=== PATIENT | male | born 1965 | race Caucasian/White ===

== ENCOUNTER 2018-03-09 13:49 | Observation (INO) | payer MEDICAID, OTHER ==
[2018-03-09] VITALS (10 sets, daily range): BP systolic 140–186; BP diastolic 76–105; PULSE 70–107; RESP 17–18; TEMP 98.6; O2SAT 96–100
[~2018-03-09] VITALS: Ht 180.3 cm; Wt 63.0 kg
[2018-03-09] MEDS ORDERED: SODIUM CHLORIDE 0.9% FLUSH 10 ML FLUSH IVF PRN (14:00)
[2018-03-09] MEDS ORDERED: ASPIRIN 81 MG CHEW TAB PO ONE (14:00)
--- NOTE | 2018-03-09 14:05 | PD ---
HPI Chief Complaint: Chest Pain Time Seen by Provider: 13:58 Travel History International Travel<30 days: No Contact w/Intl Traveler<30days: No Traveled to known affect area: No History of Present Illness HPI This is a 53-year-old male with history of coronary artery disease, CABG, stent placement in 2017, history of hypertension and tobacco use who presents by private vehicle for evaluation of chest pain. Symptoms started 1 hour prior to arrival when he was yelling at his grandchildren. Pain is a sharp left-sided chest pain that seems to radiate throughout his body. He reports that he has similar pain about once every month. Typically he takes nitroglycerin and that helps but he forgot it today. He endorses nausea, dyspnea. Denies vomiting, abdominal pain, cough or congestion, dizziness, lightheadedness, weakness. He reports that he was seen at [facility] in [place] last week for evaluation of chest pain. He is uncertain specifically what has stated. He reports that he is from [place], has been visiting family in [place] for the past 1.5 months. He has no local doctor. No other complaints. [facility] Past Medical History Coronary Artery Disease: Yes Hypertension: Yes Social History Tobacco Use: Yes Allergies-Medications (Allergen,Severity, Reaction): Coded Allergies: No Known Allergies (Unverified , 03/09/18) Review of Systems Except as stated in HPI: all other systems reviewed are Neg Physical Exam Narrative GENERAL: Well-developed well-nourished male in no acute distress. SKIN: Warm and dry. HEAD: Atraumatic. Normocephalic. EYES: Pupils equal and round. No scleral icterus. No injection or drainage. ENT: No nasal bleeding or discharge. Mucous membranes pink and moist. NECK: Trachea midline. No JVD. CARDIOVASCULAR: Regular rate and rhythm. No murmur appreciated. RESPIRATORY: No accessory muscle use. Clear to auscultation. Breath sounds equal bilaterally. GASTROINTESTINAL: Abdomen soft, non-tender, nondistended. Hepatic and splenic margins not palpable. MUSCULOSKELETAL: No obvious deformities. No clubbing. No cyanosis. No edema. NEUROLOGICAL: Awake and alert. No obvious cranial nerve deficits. Motor grossly within normal limits. Normal speech. PSYCHIATRIC: Appropriate mood and affect; insight and judgment normal. Data Data Last Documented VS Vital Signs Date Time Temp Pulse Resp B/P (MAP) Pulse Ox O2 Delivery O2 Flow Rate FiO2 5/22/18 14:21 106 18 140/80 (100) 03/09/18 14:16 100 Nasal Cannula 2.00 03/09/18 13:53 98.6 Orders Orders Electrocardiogram (03/09/18 13:59) Basic Metabolic Panel (Bmp) (03/09/18 13:59) Ckmb (Isoenzyme) Profile (03/09/18 13:59) Complete Blood Count With Diff (03/09/18 13:59) Magnesium (Mg) (03/09/18 13:59) Prothrombin Time / Inr (Pt) (03/09/18 13:59) Act Partial Throm Time (Ptt) (03/09/18 13:59) Troponin I (03/09/18 13:59) Ecg Monitoring (03/09/18 13:59) Bilateral Bp Monitoring (03/09/18 13:59) Iv Access Insert/Monitor (03/09/18 13:59) Oximetry (03/09/18 13:59) Oxygen Administration (03/09/18 13:59) Aspirin Chew (Aspirin Chew) (03/09/18 14:00) Sodium Chloride 0.9% Flush (Ns Flush) (03/09/18 14:00) Nitroglycerin Sl (Nitrostat Sl) (03/09/18 14:00) Chest, Pa & Lat (03/09/18 13:59) Morphine Inj (Morphine Inj) (03/09/18 14:45) Morphine Inj (Morphine Inj) (03/09/18 15:45) Nitroglycerin 2% Oint (Nitroglycerin 2% (03/09/18 15:45) Ondansetron Odt (Zofran Odt) (03/09/18 15:45) Admit Order (Ed Use Only) (03/09/18 15:38) Labs Laboratory Tests Test 03/09/18 14:10 White Blood Count 7.2 TH/MM3 Red Blood Count 4.78 MIL/MM3 Hemoglobin 17.0 GM/DL Hematocrit 47.7 % Mean Corpuscular Volume 99.9 FL Mean Corpuscular Hemoglobin 35.6 PG Mean Corpuscular Hemoglobin Concent 35.6 % Red Cell Distribution Width 14.6 % Platelet Count 313 TH/MM3 Mean Platelet Volume 7.4 FL Neutrophils (%) (Auto) 66.0 % Lymphocytes (%) (Auto) 23.1 % Monocytes (%) (Auto) 7.7 % Eosinophils (%) (Auto) 1.6 % Basophils (%) (Auto) 1.6 % Neutrophils # (Auto) 4.8 TH/MM3 Lymphocytes # (Auto) 1.7 TH/MM3 Monocytes # (Auto) 0.6 TH/MM3 Eosinophils # (Auto) 0.1 TH/MM3 Basophils # (Auto) 0.1 TH/MM3 CBC Comment DIFF FINAL Differential Comment Prothrombin Time 9.4 SEC Prothromb Time International Ratio 0.9 RATIO Activated Partial Thromboplast Time 21.2 SEC Blood Urea Nitrogen 14 MG/DL Creatinine 1.04 MG/DL Random Glucose 112 MG/DL Calcium Level 9.3 MG/DL Magnesium Level 2.2 MG/DL Sodium Level 139 MEQ/L Potassium Level 3.7 MEQ/L Chloride Level 103 MEQ/L Carbon Dioxide Level 25.7 MEQ/L Anion Gap 10 MEQ/L Estimat Glomerular Filtration Rate 75 ML/MIN Total Creatine Kinase 52 U/L Troponin I LESS THAN 0.02 NG/ML MDM Medical Decision Making Medical Screen Exam Complete: Yes Emergency Medical Condition: Yes Medical Record Reviewed: Yes Differential Diagnosis Acute coronary syndrome, angina, aortic dissection, pneumothorax, pulmonary embolism, hemothorax, pericarditis, myocarditis, costochondritis Narrative Course Patient was placed on ECG monitoring and pulse oximetry. A 12 EKG was obtained revealing sinus rhythm with right bundle branch block, T-wave inversions noted in V1 and V2, lab work, chest x-ray have been ordered. We will attempt to obtain records from [facility] visit last week. The request has been faxed. Initial lab work imaging studies are reassuring. The patient continues to have chest pain, additional dose of morphine, nitro paste has been ordered. The patient will be admitted to the chest pain center for serial cardiac enzymes and rule out purposes. He is agreeable. Diagnosis Primary Impression: Chest pain Admitting Information Admitting Physician Requests: Nile Cuevas March 09, 2018 14:05
--- NOTE | 2018-03-09 14:08 | PD ---
Physical Exam Date Seen by Provider: March 09, 2018 Data Data Last Documented VS Vital Signs Date Time Temp Pulse Resp B/P (MAP) Pulse Ox O2 Delivery O2 Flow Rate FiO2 03/09/18 14:21 106 18 140/80 (100) 03/09/18 14:16 100 Nasal Cannula 2.00 03/09/18 13:53 98.6 Orders Orders Electrocardiogram (03/09/18 13:59) Basic Metabolic Panel (Bmp) (03/09/18 13:59) Ckmb (Isoenzyme) Profile (03/09/18 13:59) Complete Blood Count With Diff (03/09/18 13:59) Magnesium (Mg) (03/09/18 13:59) Prothrombin Time / Inr (Pt) (03/09/18 13:59) Act Partial Throm Time (Ptt) (03/09/18 13:59) Troponin I (03/09/18 13:59) Ecg Monitoring (03/09/18 13:59) Bilateral Bp Monitoring (03/09/18 13:59) Iv Access Insert/Monitor (03/09/18 13:59) Oximetry (03/09/18 13:59) Oxygen Administration (03/09/18 13:59) Aspirin Chew (Aspirin Chew) (03/09/18 14:00) Sodium Chloride 0.9% Flush (Ns Flush) (03/09/18 14:00) Nitroglycerin Sl (Nitrostat Sl) (03/09/18 14:00) Chest, Pa & Lat (03/09/18 13:59) Morphine Inj (Morphine Inj) (03/09/18 14:45) Morphine Inj (Morphine Inj) (03/09/18 15:45) Nitroglycerin 2% Oint (Nitroglycerin 2% (03/09/18 15:45) Ondansetron Odt (Zofran Odt) (03/09/18 15:45) Admit Order (Ed Use Only) (03/09/18 15:38) Labs Laboratory Tests Test 03/09/18 14:10 White Blood Count 7.2 TH/MM3 Red Blood Count 4.78 MIL/MM3 Hemoglobin 17.0 GM/DL Hematocrit 47.7 % Mean Corpuscular Volume 99.9 FL Mean Corpuscular Hemoglobin 35.6 PG Mean Corpuscular Hemoglobin Concent 35.6 % Red Cell Distribution Width 14.6 % Platelet Count 313 TH/MM3 Mean Platelet Volume 7.4 FL Neutrophils (%) (Auto) 66.0 % Lymphocytes (%) (Auto) 23.1 % Monocytes (%) (Auto) 7.7 % Eosinophils (%) (Auto) 1.6 % Basophils (%) (Auto) 1.6 % Neutrophils # (Auto) 4.8 TH/MM3 Lymphocytes # (Auto) 1.7 TH/MM3 Monocytes # (Auto) 0.6 TH/MM3 Eosinophils # (Auto) 0.1 TH/MM3 Basophils # (Auto) 0.1 TH/MM3 CBC Comment DIFF FINAL Differential Comment Prothrombin Time 9.4 SEC Prothromb Time International Ratio 0.9 RATIO Activated Partial Thromboplast Time 21.2 SEC Blood Urea Nitrogen 14 MG/DL Creatinine 1.04 MG/DL Random Glucose 112 MG/DL Calcium Level 9.3 MG/DL Magnesium Level 2.2 MG/DL Sodium Level 139 MEQ/L Potassium Level 3.7 MEQ/L Chloride Level 103 MEQ/L Carbon Dioxide Level 25.7 MEQ/L Anion Gap 10 MEQ/L Estimat Glomerular Filtration Rate 75 ML/MIN Total Creatine Kinase 52 U/L Troponin I LESS THAN 0.02 NG/ML MDM Medical Record Reviewed: Yes Supervised Visit with CAMRON: Yes Interpretation(s) Vital Signs Date Time Temp Pulse Resp B/P (MAP) Pulse Ox O2 Delivery O2 Flow Rate FiO2 03/09/18 13:53 98.6 70 18 177/103 [phone]) 31 Narrative Course I, Dr. Longoria, have reviewed the advance practice practitioner's documentation ( Nile Pierson) and am in agreement, met with the patient face to face, made the diagnosis, and the medical decision making was done by me. *My assessment and Findings: Chest pain - patient is a 53-year-old male who presents the emergency room complaints of chest pain. Patient reports that just prior to coming to the ER, he began feeling as if a horse kicked him in the chest. Reports SOB and diaphoresis with his chest pain. Patient does have history of coronary disease , history of bypass surgery with multiple cardiac stents, reports that he was seen at [facility] last week for similar symptoms and was discharged home from there after an inpatient visit. Cardiac workup initiated for patient. Attempt was made to obtain records from [facility]. Ultimately, patient require admission for observation to the hospital in the chest pain unit. Laboratory Tests Test 03/09/18 14:10 White Blood Count 7.2 TH/MM3 (4.0-11.0) Red Blood Count 4.78 MIL/MM3 (4.50-5.90) Hemoglobin 17.0 GM/DL (13.0-17.0) Hematocrit 47.7 % (39.0-51.0) Mean Corpuscular Volume 99.9 FL (80.0-100.0) Mean Corpuscular Hemoglobin 35.6 PG (27.0-34.0) Mean Corpuscular Hemoglobin Concent 35.6 % (32.0-36.0) Red Cell Distribution Width 14.6 % (11.6-17.2) Platelet Count 313 TH/MM3 (150-450) Mean Platelet Volume 7.4 FL (7.0-11.0) Neutrophils (%) (Auto) 66.0 % (16.0-70.0) Lymphocytes (%) (Auto) 23.1 % (9.0-44.0) Monocytes (%) (Auto) 7.7 % (0.0-8.0) Eosinophils (%) (Auto) 1.6 % (0.0-4.0) Basophils (%) (Auto) 1.6 % (0.0-2.0) Neutrophils # (Auto) 4.8 TH/MM3 (1.8-7.7) Lymphocytes # (Auto) 1.7 TH/MM3 (1.0-4.8) Monocytes # (Auto) 0.6 TH/MM3 (0-0.9) Eosinophils # (Auto) 0.1 TH/MM3 (0-0.4) Basophils # (Auto) 0.1 TH/MM3 (0-0.2) CBC Comment DIFF FINAL Differential Comment Prothrombin Time 9.4 SEC (9.8-11.6) Prothromb Time International Ratio 0.9 RATIO Activated Partial Thromboplast Time 21.2 SEC (24.3-30.1) Blood Urea Nitrogen 14 MG/DL (7-18) Creatinine 1.04 MG/DL (0.60-1.30) Random Glucose 112 MG/DL (74-106) Calcium Level 9.3 MG/DL (8.5-10.1) Magnesium Level 2.2 MG/DL (1.5-2.5) Sodium Level 139 MEQ/L (136-145) Potassium Level 3.7 MEQ/L (3.5-5.1) Chloride Level 103 MEQ/L (98-107) Carbon Dioxide Level 25.7 MEQ/L (21.0-32.0) Anion Gap 10 MEQ/L (5-15) Estimat Glomerular Filtration Rate 75 ML/MIN (>89) Total Creatine Kinase 52 U/L (39-308) Troponin I LESS THAN 0.02 NG/ML 1st set of trop neg, will obs to chest pain unit, records from [facility] are pending Diagnosis Primary Impression: Chest pain Admitting Information Admitting Physician Requests: Observation Melania Longoria DO March 09, 2018 14:08
[2018-03-09] MEDS: NITROGLYCERIN 0.4 MG SL 25 TABS/BTL SL SCH ×3 (14:10→14:20)
[2018-03-09 14:27] LABS: AUTOMATED NEUTROPHIL # 4.8 TH/MM3 (1.8-7.7); BASOPHIL # 0.1 TH/MM3 (0-0.2); BASOPHIL % 1.6 % (0.0-2.0); EOSINOPHIL # 0.1 TH/MM3 (0-0.4); EOSINOPHIL % 1.6 % (0.0-4.0); HEMATOCRIT 47.7 % (39.0-51.0); LYMPH % 23.1 % (9.0-44.0); LYMPHOCYTE # 1.7 TH/MM3 (1.0-4.8); MEAN CELL VOLUME 99.9 FL (80.0-100.0); MEAN CORPUSCULAR HEMOGLOBIN 35.6 PG (27.0-34.0); MEAN CORPUSCULAR HGB CONC 35.6 % (32.0-36.0); MEAN PLATELET VOLUME 7.4 FL (7.0-11.0); MONO % 7.7 % (0.0-8.0); MONOCYTE # 0.6 TH/MM3 (0-0.9); PLATELET COUNT 313 TH/MM3 (150-450); RED BLOOD COUNT 4.78 MIL/MM3 (4.50-5.90); RED CELL DISTRIBUTION WIDTH 14.6 % (11.6-17.2); WHITE BLOOD COUNT 7.2 TH/MM3 (4.0-11.0)
[2018-03-09 14:35] LABS: INTERNATIONAL NORMALIZED RATIO 0.9 RATIO; PROTHROMBIN TIME - PATIENT 9.4 SEC (9.8-11.6)
[2018-03-09] MEDS ORDERED: MORPHINE SULFATE 4 MG/ML INJ IV PUSH ONE ×2 (14:45→15:45)
[2018-03-09 15:06] LABS: BICARBONATE 25.7 MEQ/L (21.0-32.0); BLOOD UREA NITROGEN 14 MG/DL (7-18); CALCIUM 9.3 MG/DL (8.5-10.1); CHLORIDE 103 MEQ/L (98-107); CREATININE 1.04 MG/DL (0.60-1.30); GLOMERULAR FILTRATION RATE 75 ML/MIN (>89); GLUCOSE,RANDOM 112 MG/DL (74-106); MAGNESIUM 2.2 MG/DL (1.5-2.5); SODIUM (NA) 139 MEQ/L (136-145)
[2018-03-09 15:08] LABS: TROPONIN I LESS THAN 0.02 NG/ML (0.02-0.05)
--- NOTE | 2018-03-09 15:21 | RADRPT ---
EXAM DATE: 03/09/2018 3:16 PM EDT AGE/SEX: 53 years / Male INDICATIONS: Severe chest pain since early today, patient twisted his body and feels like his ribs a re split open CLINICAL DATA: This is the patient's initial encounter. Patient reports that signs and symptoms have been present for 1 day and indicates a pain score of 10/10. MEDICAL/SURGICAL HISTORY: Cardiovascular disease. Congestive heart failure. CABG. COMPARISON: No prior [facility] exams available for comparison. FINDINGS: PA and lateral views of the chest demonstrate the lungs to be symmetrically aerated withou t evidence of mass, infiltrate or effusion. The cardiomediastinal contours are unremarkable. There is evidence of previous cardiothoracic surgery. Osseous structures are intact. There is some coils over lying the left clavicle area. CONCLUSION: No acute intrathoracic disease. Electronically signed by: Leonel Adrian MD 03/09/2018 3:19 PM EDT
[2018-03-09] MEDS ORDERED: IOHEXOL 350 MG/ML 100 ML BTL (for Cath Lab) OTHER ONE (15:41)
[2018-03-09] MEDS ORDERED: NITROGLYCERIN 2% OINT 1 GM PACKET TOP ONE (15:45)
[2018-03-09] MEDS ORDERED: ONDANSETRON ODT 4 MG TAB PO ONE (15:45)
--- NOTE | 2018-03-09 16:41 | HHI.HP ---
HPI Primary Care Physician Unknown Chief Complaint Chest pain History of Present Illness This is a 53-year-old male with history of CAD with a three-vessel bypass May 2017 in [place] as well as having 5 stents since then presents to ED with a complaint of chest discomfort that began this morning. Patient states that he twisted quickly to be on his grandson and when doing so he felt as if something in his chest not. He points to the sternum indicate the location of this. It was a sharp pain. It lasted an hour. States that just recently came back. States is tender to touch. He was not short of breath, nauseous, or diaphoretic. He states it is not the same type of discomfort that he would have when needing stents or the bypass. States that he was having a pressure discomfort with those episodes. States he was recently admitted to [facility] last week and was discharged. States he had CAT scan but states he had no stress test or heart catheterization. States his last stent was 2 months ago. Does not know which vessel. States that his last stress test was 3 months ago in [place] and at which time he needed a stent. States he is in town visiting family and does not know when he will be back in [place]. He has no local doctor. States he takes the medications as directed but does not know any of them. Patient continues to smoke cigarettes. Review of Systems General: Patient denies fevers, chills, and recent travel. HEENT: Patient denies headache, sore throat, difficulty swallowing. Cardiovascular: Has the chest discomfort as mentioned above. Denies sensation of heart beating rapidly or irregularly. No syncope. Denies diaphoresis. Respiratory: Denies shortness of breath or inspirational chest discomfort. Denies coughing wheezing or hemoptysis. GI: Patient denies nausea, vomiting, diarrhea, abdominal pain, bloody stools. Musculoskeletal: Patient denies joint pain or edema. Denies calf pain or edema. Neurovascular: Patient denies numbness, tingling, weakness in extremities. Denies headache. Endocrine: Denies polyuria and polydipsia. Hematologic: Denies easy bruising. Skin: Denies rash or itching. Past Family Social History Allergies: Coded Allergies: No Known Allergies (Unverified , 03/09/18) Past Medical History CAD with CABG and 5 stents since his bypass. Hypertension, hyperlipidemia, tobacco abuse. Denies diabetes. Past Surgical History He has had CABG. He has had multiple heart catheterizations. States he has had 5 stents. Reported Medications Reported Meds & Active Scripts Active Active Prescriptions or Reported Medications Unobtainable Active Ordered Medications Current Medications Medications (Trade) Dose Ordered Sig/Brennan Route Start Time Stop Time Status Last Admin (NS Flush) 2 ml UNSCH PRN IVF 03/09/18 14:00 Family History There is family history of CAD. Social History Patient continues to smoke about 1 pack of cigarettes daily and has done so for more than 30 years. Denies alcohol or illicit drug use. Physical Exam Vital Signs Vital Signs Date Time Temp Pulse Resp B/P (MAP) Pulse Ox O2 Delivery O2 Flow Rate FiO2 03/09/18 15:56 97 17 178/105 (129) 100 Room Air 03/09/18 14:21 106 18 140/80 (100) 03/09/18 14:16 107 18 181/95 (123) 100 Nasal Cannula 2.00 03/09/18 14:11 98 171/103 (125) 03/09/18 14:06 100 Nasal Cannula 2.00 03/09/18 14:06 100 Nasal Cannula 2.00 03/09/18 14:06 83 100 Nasal Cannula 2.00 03/09/18 13:53 98.6 70 18 177/103 (127) 96 Physical Exam GENERAL: This is a well-nourished, well-developed patient, in no apparent distress. Patient speaks in clear complete sentences. Patient is pleasant. HEENT: Head is atraumatic and normocephalic. Neck is supple without lymphadenopathy and trachea is midline. No JVD or carotid bruits. CARDIOVASCULAR: Regular rate and rhythm without murmurs, gallops, or rubs. RESPIRATORY: Clear to auscultation. Breath sounds equal bilaterally. No wheezes , rales, or rhonchi. Chest wall is tender over the sternum which brings back the discomfort he had this morning. No use of accessory muscles. GASTROINTESTINAL: Abdomen is nontender, nondistended. Abdomen soft. No obvious pulsatile mass or bruit. No CVA tenderness. Strong femoral pulses bilaterally. Normal bowel sounds in all quadrants. MUSCULOSKELETAL: Patient is moving upper and lower extremities freely. No calf tenderness or edema, no Homans sign. Strong pulses in upper and lower extremities. NEUROLOGICAL: Patient is alert and oriented. Cranial nerves 2-12 are grossly intact. No focal deficits and speech is clear. SKIN: No rash and turgor is normal. Laboratory Laboratory Tests Test 03/09/18 14:10 White Blood Count 7.2 Red Blood Count 4.78 Hemoglobin 17.0 Hematocrit 47.7 Mean Corpuscular Volume 99.9 Mean Corpuscular Hemoglobin 35.6 Mean Corpuscular Hemoglobin Concent 35.6 Red Cell Distribution Width 14.6 Platelet Count 313 Mean Platelet Volume 7.4 Neutrophils (%) (Auto) 66.0 Lymphocytes (%) (Auto) 23.1 Monocytes (%) (Auto) 7.7 Eosinophils (%) (Auto) 1.6 Basophils (%) (Auto) 1.6 Neutrophils # (Auto) 4.8 Lymphocytes # (Auto) 1.7 Monocytes # (Auto) 0.6 Eosinophils # (Auto) 0.1 Basophils # (Auto) 0.1 CBC Comment DIFF FINAL Differential Comment Prothrombin Time 9.4 Prothromb Time International Ratio 0.9 Activated Partial Thromboplast Time 21.2 Blood Urea Nitrogen 14 Creatinine 1.04 Random Glucose 112 Calcium Level 9.3 Magnesium Level 2.2 Sodium Level 139 Potassium Level 3.7 Chloride Level 103 Carbon Dioxide Level 25.7 Anion Gap 10 Estimat Glomerular Filtration Rate 75 Total Creatine Kinase 52 Troponin I LESS THAN 0.02 Result Diagram: 03/09/18 1410 03/09/18 1410 Imaging Last 48 hours Impressions Chest X-Ray 03/09/18 1359 Signed Impressions: CONCLUSION: No acute intrathoracic disease. Course Initial EKG sinus rhythm with right bundle branch block. No significant ST segment depression or elevation. Caprini VTE Risk Assessment Caprini VTE Risk Assessment: No/Low Risk (score <= 1) Caprini Risk Assessment Model Point Value = 1 Point Value = 2 Point Value = 3 Point Value = 5 Age 41-60 Minor surgery BMI > 25 kg/m2 Swollen legs Varicose veins or History of unexplained or recurrent spontaneous Oral contraceptives or hormone replacement Sepsis (< 1 month) Serious lung disease, including pneumonia (< 1 month) Abnormal pulmonary function Acute myocardial infarction Congestive heart failure (< 1 month) History of inflammatory bowel disease Medical patient at bed rest Age 61-74 Arthroscopic surgery Major open surgery (> 45 min) Laparoscopic surgery (> 45 min) Malignancy Confined to bed (> 72 hours) Immobilizing plaster cast Central venous access Age >= 75 History of VTE Family history of VTE Factor V Leiden Prothrombin [id number] Lupus anticoagulant Anticardiolipin antibodies Elevated serum homocysteine Heparin-induced thrombocytopenia Other congenital or acquired thrombophilia Stroke (< 1 month) Elective arthroplasty Hip, pelvis, or leg fracture Acute spinal cord injury (< 1 month) Prophylaxis Regimen Total Risk Factor Score Risk Level Prophylaxis Regimen 0-1 Low Early ambulation 2 Moderate Order ONE of the following: *Sequential Compression Device (SCD) *Heparin 5000 units SQ BID 3-4 Higher Order ONE of the following medications: *Heparin 5000 units SQ TID *Enoxaparin/Lovenox 40 mg SQ daily (WT < 150 kg, CrCl > 30 mL/min) *Enoxaparin/Lovenox 30 mg SQ daily (WT < 150 kg, CrCl > 10-29 mL/min) *Enoxaparin/Lovenox 30 mg SQ BID (WT < 150 kg, CrCl > 30 mL/min) AND/OR *Sequential Compression Device (SCD) 5 or more Highest Order ONE of the following medications: *Heparin 5000 units SQ TID (Preferred with Epidurals) *Enoxaparin/Lovenox 40 mg SQ daily (WT < 150 kg, CrCl > 30 mL/min) *Enoxaparin/Lovenox 30 mg SQ daily (WT < 150 kg, CrCl > 10-29 mL/min) *Enoxaparin/Lovenox 30 mg SQ BID (WT < 150 kg, CrCl > 30 mL/min) AND *Sequential Compression Device (SCD) Assessment and Plan Assessment and Plan * Chest pain: Patient's will continue to have serial cardiac enzymes and EKGs for ruling out purposes. Patient will be evaluated by Dr. Becerril cardiology in the chest pain center and at that point further plan will be determined. Patient will need outpatient follow-up. He should return to ED for interval issues. * CAD: This will likely be reassessed if he rules out by likely having a stress test, but this will be determined by Dr. Becerril's evaluation. * Hypertension: Continue medication. The ED is trying to obtain accurate medication list from his pharmacy. * Hyperlipidemia: Resume his medication when confirmed by his pharmacy. * Tobacco abuse: Patient has been counseled on importance of smoking cessation. Patient is stable at this time. He is agreeable to this plan. Dr. Becerril evaluate the patient. He describes symptoms now that are more concerning for ischemia. I discussed this patient with Dr. Causey. He has evaluated the patient. He plans on doing cardiac catheterization in the morning and has requested that we start a heparin drip. This has been ordered. I also spoke with [facility] who has agreed to accept this patient to his service. Patient is agreeable to this plan. Jensen Aguillon March 09, 2018 16:41
[2018-03-09] MEDS ORDERED: cloNIDine HCL 0.1 MG TAB PO PRN (16:45)
[2018-03-09] MEDS ORDERED: KETOROLAC TROMETHAMINE 30 MG/ML (IVP) VIAL IVP ONE (16:45)
[2018-03-09] MEDS ORDERED: PANTOPRAZOLE SOD 40 MG DELAYED RELEASE TAB PO SCH (16:45)
[2018-03-09] MEDS ORDERED: RESP: ALBUTEROL 2.5 MG/IPRATROPIUM 0.5 MG NEB (PRN) INH (16:45)
[2018-03-09] MEDS ORDERED: ACETAMINOPHEN 500 MG CPLT PO PRN (16:45)
[2018-03-09] MEDS ORDERED: PLAV75TA29 PO (17:13)
[2018-03-09] MEDS ORDERED: CARV12.5 PO (17:13)
[2018-03-09] MEDS ORDERED: ISOS30TA3 PO (17:13)
[2018-03-09] MEDS ORDERED: ATOR40TA16 PO (17:13)
[2018-03-09] MEDS ORDERED: PROT40TA PO (17:13)
[2018-03-09] MEDS ORDERED: RANO500 PO (17:13)
[2018-03-09] MEDS ORDERED: NITR0.4S SL (17:13)
[2018-03-09] MEDS ORDERED: LOSA50TA PO (17:13)
[2018-03-09] MEDS ORDERED: AMLO10TA2 PO (17:13)
[2018-03-09 18:15] LABS: TROPONIN I LESS THAN 0.02 NG/ML (0.02-0.05)
[2018-03-09] MEDS: CARVEDILOL 12.5 MG TAB PO SCH (18:16)
[2018-03-09] MEDS ORDERED: HEPARIN SODIUM - IV 10,000 UNITS/10 ML VIAL IV PUSH PRN ×2 (18:45)
[2018-03-09] MEDS ORDERED: HEPARIN 25,000 UNITS-D5W 250 ML - PREMIX IV PRN (18:45)
[2018-03-09] MEDS ORDERED: HEPARIN SODIUM - IV 10,000 UNITS/10 ML VIAL IV ONE (18:45)
[2018-03-09] MEDS ORDERED: ONDANSETRON ODT 4 MG TAB PO PRN (21:00)
[2018-03-09] MEDS ORDERED: PROCHLORPERAZINE INJ 10 MG/2 ML VIAL IV PUSH PRN (21:15)
[2018-03-09] MEDS: MORPHINE SULFATE 4 MG/ML INJ IV PUSH PRN (21:35)
[2018-03-09 21:53] LABS: TROPONIN I LESS THAN 0.02 NG/ML (0.02-0.05)
[2018-03-09] MEDS: RANOLAZINE 500 MG EXTENDED RELEASE TAB PO SCH (23:00)
[2018-03-09] MEDS: ATORVASTATIN 40 MG TAB PO SCH (23:00)
[2018-03-09] MEDS: ACETAMINOPHEN/HYDROcodone 325 MG/7.5 MG TAB PO PRN (23:01)
[2018-03-09] MEDS: ALPRAZolam 0.25 MG TAB PO PRN (23:05)
--- NOTE | 2018-03-09 23:17 | MB ---
cc: Isiah Causey MD, Arthur W MD DATE: 03/09/2018 HISTORY OF PRESENT ILLNESS: Matty is a very pleasant 53-year-old gentleman visiting from [place] with a complex cardiovascular history. He has a history of coronary artery disease, status post CABG, stent placement in 2017, currently smokes, history of hypertension. Apparently he had some workup in [place] which the patient was unsatisfied with. He comes to [place] ER complaining of chest pain. He gives various stories to different practitioners. When I saw him, he appeared to be sleeping but he complained of severe pain. He was asking for pain meds. I did have to wake him up however. He also admits to nauseousness and dyspnea. Denies fever, chills, cough, GI or bleeding, PND, orthopnea, syncope or dizziness. PAST MEDICAL HISTORY: As per history of present illness. SOCIAL HISTORY: He does smoke. Denies alcohol use. ALLERGIES: NONE. MEDICATIONS IN THE HOSPITAL: 1. Aspirin 325 daily. 2. Amlodipine 10 mg daily. 3. Clopidogrel 75 mg daily. 4. Losartan 50 mg daily. 5. Pantoprazole 40 mg daily. 6. Isosorbide mononitrate 30 mg daily. 7. Atorvastatin 40 mg at bedtime. 8. Ranexa 500 mg b.i.d. 9. Heparin drip. 10. Carvedilol 12.5 Q 12 hours. PHYSICAL EXAMINATION: VITAL SIGNS: Blood pressure 151/88, pulse ranging between 97 and 107, respiratory rate 18, sats 97% on room air, temperature 98.6. GENERAL: He is alert and oriented x 3 in mild to moderate distress. NECK: Supple. No JVD. No bruit. CARDIOVASCULAR: S1, S2. No murmurs, rubs, or gallops. LUNGS: Clear to auscultation bilaterally. ABDOMEN: Soft, nontender, nondistended with positive bowel sounds. EXTREMITIES: No lower extremity edema. LABORATORY DATA: White count 7.2, hemoglobin 17.0, hematocrit 47.7, platelet count 313. Troponin less than 0.02 x3. Sodium 139, potassium 3.7, chloride 103, bicarbonate 25.7, BUN 14, creatinine 1.04. INR is 0.9. IMAGING STUDIES: Chest x-ray: No acute intrathoracic disease. CARDIOLOGY STUDIES: EKG: Normal sinus rhythm, previous inferior GA, left anterior fascicular block, right bundle branch block. Repeat EKG: Sinus tachycardia at 111 beats per minute, right bundle branch block, left anterior fascicular block and previous inferior myocardial infarction, nonspecific ST-T wave changes. DIAGNOSES: 1. Chest pain. 2. Unstable angina. 3. Coronary artery disease. 4. Tobacco abuse. 5. Left anterior fascicular block. 6. Right bundle branch block. 7. Sinus tachycardia. 8. Hyperglycemia. DISCUSSION: At this point in time, I agree with aspirin, heparin, Coreg and Lipitor. Strongly recommend smoking cessation. Patient has no obvious ischemia on his electrocardiogram and troponins are negative x3. Nevertheless, he does have multiple risk factors and an extensive history of cardiovascular disease, and I do think left heart catheterization is medically necessary. I have recommended this to the patient. Plan to keep the patient n.p.o. after midnight and plan for left heart catheterization on 03/10/2018. Strongly recommend smoking cessation. MD DION Brown/ , 10:49 PM , 11:17 PM
[2018-03-10] VITALS (19 sets, daily range): BP systolic 129–176; BP diastolic 80–99; PULSE 88–107; RESP 14–18; TEMP 98–98.7; O2SAT 98–99
[2018-03-10 02:29] LABS: CALCIUM 8.9 MG/DL (8.5-10.1); CREATININE 0.81 MG/DL (0.60-1.30)
[2018-03-10 02:39] LABS: HEMATOCRIT 48.6 % (39.0-51.0); HEMOGLOBIN 16.7 GM/DL (13.0-17.0); MEAN CELL VOLUME 99.3 FL (80.0-100.0); MEAN CORPUSCULAR HGB CONC 34.3 % (32.0-36.0); MEAN PLATELET VOLUME 7.3 FL (7.0-11.0); PLATELET COUNT 281 TH/MM3 (150-450); RED BLOOD COUNT 4.89 MIL/MM3 (4.50-5.90); RED CELL DISTRIBUTION WIDTH 14.4 % (11.6-17.2); WHITE BLOOD COUNT 10.2 TH/MM3 (4.0-11.0)
[2018-03-10] MEDS: MORPHINE SULFATE 4 MG/ML INJ IV PUSH PRN ×2 (03:41→07:50)
[2018-03-10] MEDS: CARVEDILOL 12.5 MG TAB PO SCH ×2 (06:15→18:02)
[2018-03-10] MEDS: ISOSORBIDE MONONITRATE 30 MG CR TAB (IMDUR) PO SCH (06:15)
[2018-03-10] MEDS ORDERED: METOPROLOL TARTRATE 25 MG TAB PO PRN (06:30)
[2018-03-10] MEDS ORDERED: SODIUM CHLORID 0.9% 500 ML IV PRN (06:30)
[2018-03-10] MEDS ORDERED: CHLORHEXIDINE GLUCONATE 2 % 1 PACK (2 CLOTHS) TOPICAL PRN (06:30)
[2018-03-10] MEDS ORDERED: LACTATED RINGER'S 1000 ML IV PRN (06:30)
[2018-03-10] MEDS ORDERED: POVIDONE IODINE 5% (ANTISEPSIS KIT) 4 APPLICATIONS EACH NARE PRN (06:30)
[2018-03-10] MEDS: CLOPIDOGREL 75 MG TAB PO SCH (07:47)
[2018-03-10] MEDS: LOSARTAN 50 MG TAB PO SCH (07:48)
[2018-03-10] MEDS ORDERED: POTASSIUM CHLORIDE 20 MEQ CONTROLLED RELEASE TAB PO ONE (08:30)
--- NOTE | 2018-03-10 08:37 | HHI.PR ---
Subjective Remarks Follow-up chest pain. Overnight he had intermittent chest pain but pain-free at this time. Awaiting cardiac catheterization. States he had lipid profile checked a week ago when he was hospitalized at [facility] no medication adjustment Objective Vitals Vital Signs Date Time Temp Pulse Resp B/P (MAP) Pulse Ox O2 Delivery O2 Flow Rate FiO2 03/10/18 07:44 98.7 106 18 144/91 (108) 98 03/10/18 04:25 103 03/10/18 03:23 98.0 107 18 176/99 (124) 99 03/10/18 00:05 105 03/09/18 22:00 98 Nasal Cannula 2.00 03/09/18 20:55 96 03/09/18 20:43 106 18 151/88 (109) 97 03/09/18 17:34 102 17 186/76 (112) 100 Nasal Cannula 2.00 03/09/18 16:37 2.00 03/09/18 15:56 97 17 178/105 (129) 100 Room Air 03/09/18 14:21 106 18 140/80 (100) 03/09/18 14:16 107 18 181/95 (123) 100 Nasal Cannula 2.00 03/09/18 14:11 98 171/103 (125) 03/09/18 14:06 100 Nasal Cannula 2.00 03/09/18 14:06 100 Nasal Cannula 2.00 03/09/18 14:06 83 100 Nasal Cannula 2.00 03/09/18 13:53 98.6 70 18 177/103 (127) 96 Result Diagram: 03/10/18 0154 03/10/18 0154 Imaging Last Impressions Chest X-Ray 03/09/18 1359 Signed Impressions: CONCLUSION: No acute intrathoracic disease. Objective Remarks GENERAL: This is a well-nourished, well-developed patient, in no apparent distress. CARDIOVASCULAR: Regular rate and rhythm without murmurs, gallops, or rubs. RESPIRATORY: Clear to auscultation. Breath sounds equal bilaterally. No wheezes , rales, or rhonchi. Chest wall is tender over the sternum . No use of accessory muscles. GASTROINTESTINAL: Abdomen is nontender, nondistended. Abdomen soft. No obvious pulsatile mass or bruit. No CVA tenderness. Strong femoral pulses bilaterally. Normal bowel sounds in all quadrants. MUSCULOSKELETAL: Patient is moving upper and lower extremities freely. No calf tenderness or edema, no Homans sign. Strong pulses in upper and lower extremities. NEUROLOGICAL: Patient is alert and oriented. Cranial nerves 2-12 are grossly intact. No focal deficits and speech is clear. SKIN: No rash and turgor is normal. A/P Problem List: (1) Chest pain ICD Code: R07.9 - Chest pain, unspecified Status: Acute Assessment and Plan Chest pain: Patient ruled out for PR currently pain-free. He has significant cardiac history with history of CAD and multiple stents. Continue aspirin, Plavix, heparin drip, nitrate, Ranexa and beta-natanael Hypertension. Suboptimal control with increase Coreg and continue rest of his home medications Hyperlipidemia: Continue statin. Patient states it was recently checked last week at [facility] will get records Tobacco abuse: Patient has been counseled on importance of smoking cessation. DVT prophylaxis with heparin Discharge Planning Per cardiology Nadeem Powell MD March 10, 2018 08:37
[2018-03-10] MEDS ORDERED: ASPIRIN 325 MG TAB PO SCH (09:00)
[2018-03-10] MEDS: PANTOPRAZOLE SOD 40 MG DELAYED RELEASE TAB PO SCH (09:00)
[2018-03-10] MEDS: RANOLAZINE 500 MG EXTENDED RELEASE TAB PO SCH ×2 (09:00→21:50)
[2018-03-10] MEDS ORDERED: MIDAZOLAM HCL 2 MG/2 ML VIAL ONE (10:40)
[2018-03-10] MEDS ORDERED: HEPARIN-NS/PF INJ 1,000 ML ONE (10:40)
[2018-03-10] MEDS ORDERED: HEPARIN SODIUM - IV 10,000 UNITS/10 ML VIAL ONE (11:19)
[2018-03-10] MEDS ORDERED: CLOPIDOGREL 300 MG TAB ONE (11:28)
[2018-03-10] MEDS ORDERED: MISC INFORMATION XX ONE (11:45)
[2018-03-10] MEDS ORDERED: SODIUM CHLORIDE 0.9% FLUSH 10 ML FLUSH IV FLUSH PRN (11:45)
[2018-03-10] MEDS ORDERED: CLOPIDOGREL 300 MG TAB PO ONE (11:45)
--- NOTE | 2018-03-10 12:22 | MR ---
cc: Isiah Causey MD DATE: 03/10/2018 PROCEDURE PERFORMED: Left heart catheterization, left ventriculography, coronary angiography, saphenous vein angiography, KATE angiography, aortic root angiography and direct PCI bare metal stent of the ostial first obtuse marginal vessel. INDICATIONS: Unstable angina, coronary artery disease status post CABG, status post PCI. PROCEDURAL STATEMENT: The patient was brought to the cardiac catheterization laboratory, prepped and draped in the usual sterile fashion. 10 mL of 1% lidocaine was used to locally anesthetize the right common femoral. A 4-Albanian sheath placed in the right common femoral artery. A 4-Albanian JR4, JL4 and angled catheters were used to perform left and right coronary angiography, left ventriculography, saphenous vein angiography, KATE angiography and aortic root angiography with the following findings. LV pressures 120/0/5, ejection fraction 60%. The right coronary artery is dominant and has no significant obstructive disease. There is a vein graft to a diagonal vessel which has a stent in the proximal mid segment. It looks like it is probably at least 40 mm of stent which was widely patent. The diagonal vessel beyond the graft insertion site has no significant obstructive disease. There was retrograde filling to a point of occlusion in the proximal diagonal vessel. I do not see any appreciable competitive flow. The KATE to the LAD has a stent in the ostial proximal segment, which is widely patent. There is a branch off the proximal KATE which bifurcates and has coils in each branch of the bifurcation. There is flow going through the more medial branch. There does not appear to be flow going to past the more lateral branch. The flow in the medial branch is JESSICA 2-3. The KATE otherwise does not appear to have any obstructive disease. The LAD beyond the graft insertion site has no significant obstructive disease. It is a non-transapical vessel. There may actually be a stent at the insertion site of the KATE to the LAD. It is indeterminate fluoroscopically. The left main coronary artery has a distal 20% stenosis. The left circumflex vessel has an ostial 20% stenosis. There is a small marginal vessel coming off the mid to distal AV groove of the left circumflex which has no significant disease angiographically. The left circumflex fills a posterolateral artery distally which bifurcates. The more medial branch has no significant disease angiographically. It is a medium to large size vessel, reference vessel diameter of 3 mm. The more lateral branch appears to be a reference vessel diameter of 2.5 with a long 80-90% stenosis. Angulation off the medial branch is about 30 degrees. The LAD appears to have a long 75-80% stenosis in the mid segment. There is competitive flow seen in the mid to distal segment. The patient has atypical anatomy with what appears to be a diagonal vessel coming off the LAD; however, it distributes in an obtuse marginal vessel distribution. It is a medium to large sized vessel, reference vessel diameter of 3 mm with an ostial 95% stenosis. We then proceeded to do an aortic root shot. Aortic root angiography reveals a patent vein graft to the diagonal that was imaged selectively. I do not appreciate any other grafts. The 4 Albanian sheath was exchanged for a 6 Albanian. 70 units per kilo of heparin was given. ACT was 216. An additional 1500 units of heparin was given. Final ACT pending at the time of dictation. A 6-Albanian XB 3.5 guide, 0.014 [place] guidewire were used to cross the ostial proximal obtuse marginal vessel stenosis. The lesion was directly stented with a 30 x 9 Integrity stent with one inflation to 9 atmospheres for 20 seconds. The stenosis went from 95% to 0% with JESSICA 3 flow. CONCLUSIONS: 1. Unstable angina. He does have atypical components to his chest pain as it is constant with no troponin elevation. His chest pain may be coming from the partially occluded coiled branches of the proximal KATE as detailed above. He did have a high grade 95% stenosis in the ostial first obtuse marginal vessel which was an anatomical variant as it came off the proximal LAD. There was otherwise 2 grafts patent. I was not able to image a third graft despite the fact that the patient's history was having 3 bypasses. 2. Normal LV systolic function, ejection fraction 60%. 3. Successful direct PCI of the ostial first obtuse marginal vessel from 95% to 0% with JESSICA 3 flow. 4. Recommend reload with Plavix 600 mg p.o. and 75 mg a day for 12-15 months, aspirin 162 mg daily. Continue Lipitor. Isiah Causey MD AWCristian/BRIDGETTE Marroquin: 03/10/2018, 11:39 AM , 12:21 PM
[2018-03-10] MEDS: ACETAMINOPHEN/HYDROcodone 325 MG/7.5 MG TAB PO PRN ×3 (12:28→23:22)
[2018-03-10] MEDS ORDERED: CALCIUM CARBONATE 500 MG CHEWABLE TAB CHEW PRN (15:30)
[2018-03-10] MEDS ORDERED: ALUMINUM/MAGNESIUM/SIMETH 30 ML CUP PO PRN (15:30)
[2018-03-10] MEDS: ATORVASTATIN 40 MG TAB PO SCH (21:50)
[2018-03-10] MEDS: ALPRAZolam 0.25 MG TAB PO PRN (21:50)
[2018-03-10] MEDS: SODIUM CHLORIDE 0.9% FLUSH 10 ML FLUSH IV FLUSH SCH (21:50)
[2018-03-11] VITALS (31 sets, daily range): BP systolic 112–151; BP diastolic 67–90; PULSE 70–98; RESP 16–20; TEMP 97.6–98.7; O2SAT 96–99
[2018-03-11] MEDS: CARVEDILOL 12.5 MG TAB PO SCH ×2 (05:24→17:05)
[2018-03-11] MEDS: ACETAMINOPHEN/HYDROcodone 325 MG/7.5 MG TAB PO PRN ×3 (05:28→20:13)
[2018-03-11 06:00] LABS: AUTOMATED NEUTROPHIL # 6.6 TH/MM3 (1.8-7.7); BASOPHIL % 0.2 % (0.0-2.0); EOSINOPHIL # 0.1 TH/MM3 (0-0.4); EOSINOPHIL % 1.4 % (0.0-4.0); HEMOGLOBIN 14.7 GM/DL (13.0-17.0); LYMPH % 14.4 % (9.0-44.0); LYMPHOCYTE # 1.3 TH/MM3 (1.0-4.8); MEAN CELL VOLUME 101.8 FL (80.0-100.0); MEAN CORPUSCULAR HGB CONC 33.4 % (32.0-36.0); MEAN PLATELET VOLUME 7.6 FL (7.0-11.0); MONO % 9.4 % (0.0-8.0); MONOCYTE # 0.8 TH/MM3 (0-0.9); NEUT % 74.6 % (16.0-70.0); PLATELET COUNT 213 TH/MM3 (150-450); RED BLOOD COUNT 4.32 MIL/MM3 (4.50-5.90); RED CELL DISTRIBUTION WIDTH 14.5 % (11.6-17.2); WHITE BLOOD COUNT 8.9 TH/MM3 (4.0-11.0)
[2018-03-11 06:07] LABS: ALBUMIN 2.7 GM/DL (3.4-5.0); BICARBONATE 24.5 MEQ/L (21.0-32.0); CALCIUM 8.3 MG/DL (8.5-10.1); CHOLESTEROL/ HDL RATIO 1.97 RATIO; CREATININE 0.86 MG/DL (0.60-1.30); DIRECT BILIRUBIN ADULT 0.1 MG/DL (0.0-0.2); INDIRECT BILIRUBIN 0.5 MG/DL (0.0-0.8); TOTAL BILIRUBIN ADULT 0.6 MG/DL (0.2-1.0); TOTAL PROTEIN 6.2 GM/DL (6.4-8.2)
[2018-03-11] MEDS: ISOSORBIDE MONONITRATE 30 MG CR TAB (IMDUR) PO SCH (06:35)
[2018-03-11] MEDS ORDERED: MAG-LIQ PO (07:28)
[2018-03-11] MEDS ORDERED: Calcium Carbonate Chew CHEW (07:28)
[2018-03-11] MEDS ORDERED: HYDR-3580 PO (07:28)
[2018-03-11] MEDS ORDERED: ASPI81 PO (07:28)
[2018-03-11] MEDS ORDERED: CARV12.5 PO (07:28)
--- NOTE | 2018-03-11 07:29 | HHI.DCPOC ---
Discharge Care Plan Diagnosis: (1) Chest pain Your Health Problems Are: Difficulty with ADL Exercise Tolerance Goals to Promote Your Health * To prevent worsening of your condition and complications * To maintain your health at the optimal level Directions to Meet Your Goals Take your medications as prescribed Follow your dietary instruction Follow activity as directed Keep your appointments as scheduled Take your immunizations and boosters as scheduled If your symptoms worsen call your PCP, if no PCP go to Urgent Care Center or Emergency Room Smoking is Dangerous to Your Health. Avoid second hand smoke Call the 24-hour hour crisis hotline for domestic abuse at Nadeem Powell MD March 11, 2018 07:29
[2018-03-11] MEDS ORDERED: POTASSIUM CHLORIDE 20 MEQ CONTROLLED RELEASE TAB PO ONE (07:30)
--- NOTE | 2018-03-11 07:36 | HHI.PR ---
Subjective Remarks Follow-up coronary artery disease. Complains of heartburn. Antireflux mechanism was discussed with patient. Resolved chest pain discussed with nursing Objective Vitals Vital Signs Date Time Temp Pulse Resp B/P (MAP) Pulse Ox O2 Delivery O2 Flow Rate FiO2 03/11/18 07:00 78 03/11/18 06:37 119/73 (88) 03/11/18 06:32 18 03/11/18 06:00 81 03/11/18 05:00 94 03/11/18 04:00 92 03/11/18 03:36 90 03/11/18 03:10 98.1 91 16 151/90 (110) 99 03/11/18 02:14 87 03/11/18 01:00 84 03/11/18 00:00 90 03/10/18 23:18 98.4 91 18 130/83 (99) 99 03/10/18 23:00 106 03/10/18 22:00 88 03/10/18 21:33 98.6 97 18 129/80 (96) 99 03/10/18 21:00 96 03/10/18 20:00 90 03/10/18 19:00 93 03/10/18 18:00 106 03/10/18 17:00 102 03/10/18 16:00 100 03/10/18 15:00 98.2 90 14 146/89 (108) 99 03/10/18 15:00 93 03/10/18 14:00 96 03/10/18 13:00 92 03/10/18 12:44 98.2 90 14 146/89 (108) 99 03/10/18 12:00 93 03/10/18 07:44 98.7 106 18 144/91 (108) 98 I/O 03/10/18 03/10/18 03/10/18 03/11/18 03/11/18 03/11/18 07:00 15:00 23:00 07:00 15:00 23:00 Intake Total 240 ml 240 ml Output Total 300 ml 0 ml 200 ml Balance -300 ml 240 ml 40 ml Intake Oral 240 ml 240 ml Output Urine Total 300 ml 0 ml 200 ml Result Diagram: 03/11/18 0459 03/11/18 0459 Imaging Last Impressions Chest X-Ray 03/09/18 5251 Signed Impressions: CONCLUSION: No acute intrathoracic disease. Objective Remarks GENERAL: This is a well-nourished, well-developed patient, in no apparent distress. CARDIOVASCULAR: Regular rate and rhythm without murmurs, gallops, or rubs. RESPIRATORY: Clear to auscultation. Breath sounds equal bilaterally. No wheezes , rales, or rhonchi. GASTROINTESTINAL: Abdomen with tender epigastric soft nondistended. No obvious pulsatile mass or bruit. No CVA tenderness. Strong femoral pulses bilaterally. Normal bowel sounds in all quadrants. MUSCULOSKELETAL: Patient is moving upper and lower extremities freely. No calf tenderness or edema, no Homans sign. Strong pulses in upper and lower extremities. NEUROLOGICAL: Patient is alert and oriented. Cranial nerves 2-12 are grossly intact. No focal deficits and speech is clear. SKIN: No rash and turgor is normal. Procedures Cardiac catheterization A/P Problem List: (1) Chest pain ICD Code: R07.9 - Chest pain, unspecified Status: Acute Assessment and Plan CP with history of CAD status post CABG and multiple stents. He is chest pain- free status post direct PCI of the ostial first obtuse marginal vessel from 95% to 0% with JESSICA [address] Causey. Recommend reload with Plavix 600 mg p.o. and 75 mg a day for 12-15 months, aspirin 162 mg daily. Continue Lipitor, Coreg and Ranexa. Risk factor modification LDL 26. He is hyperglycemic obtain A1c Heartburn with epigastric tenderness. Continue PPI and antacids. Obtain lipase Hypertension. Better BP control continue Coreg, Norvasc and losartan Hyperlipidemia: Continue statin. Tobacco abuse: Patient has been counseled on importance of smoking cessation. DVT prophylaxis with heparin Discharge Planning Discharge patient to home when cleared by cardiology pending A1c and lipase Condition on discharge: Improved Regular Diet as tolerated Ad Mame activity no driving Rx written: Aspirin, Maalox, Tums, Coreg and Lortab counseled regarding narcotics Follow-up with primary care physician and cardiology Nadeem Powell MD March 11, 2018 07:36
[2018-03-11] MEDS: ASPIRIN 81 MG CHEW TAB PO SCH (08:34)
[2018-03-11] MEDS: CLOPIDOGREL 75 MG TAB PO SCH (08:35)
[2018-03-11] MEDS: RANOLAZINE 500 MG EXTENDED RELEASE TAB PO SCH ×2 (08:35→20:13)
[2018-03-11] MEDS: LOSARTAN 50 MG TAB PO SCH (08:35)
[2018-03-11] MEDS: PANTOPRAZOLE SOD 40 MG DELAYED RELEASE TAB PO SCH (08:35)
[2018-03-11] MEDS: ALPRAZolam 0.25 MG TAB PO PRN ×2 (08:39→21:50)
[2018-03-11] MEDS: SODIUM CHLORIDE 0.9% FLUSH 10 ML FLUSH IV FLUSH SCH ×2 (08:39→20:11)
[2018-03-11] MEDS ORDERED: CLOPIDOGREL 75 MG TAB PO SCH (09:00)
[2018-03-11] MEDS: NS + KCL 20 MEQ INJ 1,000 ML IV SCH (14:25)
--- NOTE | 2018-03-11 15:58 | EKG ---
Date Performed: 03/09/2018 Time Performed: 20:51:00 PTAGE: 53 years EKG: SINUS TACHYCARDIA POSSIBLE LEFT ATRIAL ENLARGEMENT RIGHT BUNDLE BRANCH BLOCK INFERIOR MYOCA RDIAL INFARCTION ABNORMAL ECG No significant change PREVIOUS TRACING : 03/09/2018 17.24 DOCTOR: Jose Barcenas Interpretating Date/Time 03/11/2018 15:58:04
--- NOTE | 2018-03-11 16:01 | EKG ---
Date Performed: 03/09/2018 Time Performed: 17:24:08 PTAGE: 53 years EKG: SINUS TACHYCARDIA RIGHT BUNDLE BRANCH BLOCK INFERIOR MYOCARDIAL INFARCTION No significant c jennifer PREVIOUS TRACING : 03/09/2018 13.54 DOCTOR: Jose Barcenas Interpretating Date/Time 03/11/2018 15:59:15
--- NOTE | 2018-03-11 16:02 | EKG ---
Date Performed: 03/09/2018 Time Performed: 13:54:15 PTAGE: 53 years EKG: Sinus rhythm WITH SINUS ARRHYTHMIA POSSIBLE LEFT ATRIAL ENLARGEMENT MARKED LEFT AXIS DEVIATION RIGHT BUNDLE BRANC H BLOCK ABNORMAL ECG No significant change PREVIOUS TRACING : 03/09/2018 13.50 DOCTOR: Jose Barcenas Interpretating Date/Time 03/11/2018 16:00:02
--- NOTE | 2018-03-11 16:48 | PD.CARD.PN ---
Subjective Subjective Remarks chest pain resolved Objective Medications Current Medications Medications (Trade) Dose Ordered Sig/Brennan Route Start Time Stop Time Status Last Admin (Tylenol) 500 mg Q4H PRN PO 03/09/18 16:45 ([place] 7.5-325 Mg) 1 tab Q4H PRN PO 03/09/18 16:45 03/11/18 14:31 (Xanax) 0.25 mg Q8H PRN PO 03/09/18 16:45 03/11/18 08:39 (Zofran Odt) 4 mg Q6H PRN PO 03/09/18 21:00 (Duoneb Neb) 1 ampule Q4HR NEB PRN INH 03/09/18 16:45 (Catapres) 0.1 mg Q4H PRN PO 03/09/18 16:45 (Norvasc) 10 mg DAILY PO 03/10/18 09:00 03/11/18 08:35 (Lipitor) 40 mg HS PO 03/09/18 21:00 03/10/18 21:50 (Plavix) 75 mg DAILY PO 03/10/18 09:00 03/11/18 08:35 (Imdur) 30 mg DAILY@0700 PO 03/10/18 07:00 03/11/18 06:35 (Cozaar) 50 mg DAILY PO 03/10/18 09:00 03/11/18 08:35 (Protonix) 40 mg DAILY PO 03/10/18 09:00 03/11/18 08:35 (Ranexa) 500 mg BID PO 03/09/18 21:00 03/11/18 08:35 (Compazine Inj) 5 mg Q6H PRN IV PUSH 03/09/18 21:15 03/09/18 21:34 Lactated Ringer's 1,000 ml @ 30 mls/hr Q24H PRN IV 03/10/18 06:30 03/13/18 06:29 Sodium Chloride 500 ml @ 30 mls/hr [id number] PRN IV 03/10/18 06:30 03/13/18 06:29 (Lopressor) 25 mg PROFESSIONAL MODEL PRN PO 03/10/18 06:30 03/13/18 06:29 (Betadine 5% Antisepsis Kit) 1 applic PROFESSIONAL MODEL PRN EACH NARE 03/10/18 06:30 03/13/18 06:29 (Chlorhexidine 2% Cloth) 3 pack PROFESSIONAL MODEL PRN TOPICAL 03/10/18 06:30 03/13/18 06:29 (Coreg) 25 mg Q12H PO 03/10/18 18:00 03/11/18 05:24 (NS Flush) 2 ml UNSCH PRN IV FLUSH 03/10/18 11:45 (NS Flush) 2 ml BID IV FLUSH 03/10/18 21:00 03/11/18 08:39 (Aspirin Chew) 162 mg DAILY PO 03/11/18 09:00 03/11/18 08:34 (Mag-Al Plus Susp Liq) 30 ml Q6H PRN PO 03/10/18 15:30 03/10/18 17:15 (Tums Chew) 500 mg Q6H PRN CHEW 03/10/18 15:30 03/10/18 15:50 Potassium Chloride/Sodium Chloride 1,000 ml @ 60 mls/hr [id number] IV 03/11/18 14:15 03/11/18 14:25 Vital Signs / I&O Vital Signs Date Time Temp Pulse Resp B/P (MAP) Pulse Ox O2 Delivery O2 Flow Rate FiO2 03/11/18 16:00 78 03/11/18 15:00 98.5 83 16 123/83 (96) 99 03/11/18 15:00 82 03/11/18 14:00 84 03/11/18 13:00 81 03/11/18 12:00 74 03/11/18 11:00 79 03/11/18 11:00 97.6 75 17 126/73 (90) 96 03/11/18 10:00 76 03/11/18 09:00 76 03/11/18 08:00 70 03/11/18 07:44 98.7 76 16 112/67 (82) 99 03/11/18 07:00 78 03/11/18 06:37 119/73 (88) 03/11/18 06:32 18 03/11/18 06:00 81 03/11/18 05:00 94 03/11/18 04:00 92 03/11/18 03:36 90 03/11/18 03:10 98.1 91 16 151/90 (110) 99 03/11/18 02:14 87 03/11/18 01:00 84 03/11/18 00:00 90 03/10/18 23:18 98.4 91 18 130/83 (99) 99 03/10/18 23:00 106 03/10/18 22:00 88 03/10/18 21:33 98.6 97 18 129/80 (96) 99 03/10/18 21:00 96 03/10/18 20:00 90 03/10/18 19:00 93 03/10/18 18:00 106 03/10/18 17:00 102 I/O 03/10/18 03/10/18 03/10/18 03/11/18 03/11/18 03/11/18 07:00 15:00 23:00 07:00 15:00 23:00 Intake Total 240 ml 240 ml Output Total 300 ml 0 ml 200 ml Balance -300 ml 240 ml 40 ml Intake Oral 240 ml 240 ml Output Urine Total 300 ml 0 ml 200 ml Laboratory Laboratory Tests Test 03/11/18 04:59 White Blood Count 8.9 TH/MM3 Red Blood Count 4.32 MIL/MM3 Hemoglobin 14.7 GM/DL Hematocrit 44.0 % Mean Corpuscular Volume 101.8 FL Mean Corpuscular Hemoglobin 34.0 PG Mean Corpuscular Hemoglobin Concent 33.4 % Red Cell Distribution Width 14.5 % Platelet Count 213 TH/MM3 Mean Platelet Volume 7.6 FL Neutrophils (%) (Auto) 74.6 % Lymphocytes (%) (Auto) 14.4 % Monocytes (%) (Auto) 9.4 % Eosinophils (%) (Auto) 1.4 % Basophils (%) (Auto) 0.2 % Neutrophils # (Auto) 6.6 TH/MM3 Lymphocytes # (Auto) 1.3 TH/MM3 Monocytes # (Auto) 0.8 TH/MM3 Eosinophils # (Auto) 0.1 TH/MM3 Basophils # (Auto) 0.0 TH/MM3 CBC Comment AUTO DIFF Differential Comment AUTO DIFF CONFIRMED Blood Urea Nitrogen 16 MG/DL Creatinine 0.86 MG/DL Random Glucose 142 MG/DL Total Protein 6.2 GM/DL Albumin 2.7 GM/DL Calcium Level 8.3 MG/DL Alkaline Phosphatase 53 U/L Aspartate Amino Transf (AST/SGOT) 15 U/L Alanine Aminotransferase (ALT/SGPT) 18 U/L Total Bilirubin 0.6 MG/DL Direct Bilirubin 0.1 MG/DL Sodium Level 136 MEQ/L Potassium Level 3.5 MEQ/L Chloride Level 102 MEQ/L Carbon Dioxide Level 24.5 MEQ/L Anion Gap 10 MEQ/L Estimat Glomerular Filtration Rate 93 ML/MIN Indirect Bilirubin 0.5 MG/DL Total Creatine Kinase 37 U/L Triglycerides Level 61 MG/DL Cholesterol Level 77 MG/DL LDL Cholesterol 26 MG/DL HDL Cholesterol 39.0 MG/DL Cholesterol/HDL Ratio 1.97 RATIO Lipase 5998 U/L Assessment and Plan Problem List: (1) Unstable angina ICD Codes: I20.0 - Unstable angina (2) CAD (coronary artery disease) ICD Codes: I25.10 - Atherosclerotic heart disease of [place] coronary artery without angina pectoris Assessment and Plan 1.) CAD - angina resolved s/p bms ost om1, continue aspirin, plavix, coreg, lipitor, patient strongly advised to stop smoking Isiah Causey MD March 11, 2018 16:48
[2018-03-11 19:21] LABS: HEMOGLOBIN A1C 5.8 % (4.3-6.0)
[2018-03-11] MEDS: ATORVASTATIN 40 MG TAB PO SCH (20:13)
[2018-03-12] VITALS (26 sets, daily range): BP systolic 104–120; BP diastolic 65–71; PULSE 62–94; RESP 16–18; TEMP 97.8–98.8; O2SAT 97–99
[2018-03-12] MEDS: ACETAMINOPHEN/HYDROcodone 325 MG/7.5 MG TAB PO PRN ×5 (01:38→22:49)
[2018-03-12 03:33] LABS: AUTOMATED NEUTROPHIL # 3.6 TH/MM3 (1.8-7.7); BASOPHIL % 0.4 % (0.0-2.0); EOSINOPHIL # 0.1 TH/MM3 (0-0.4); EOSINOPHIL % 2.4 % (0.0-4.0); HEMATOCRIT 40.4 % (39.0-51.0); HEMOGLOBIN 13.5 GM/DL (13.0-17.0); LYMPH % 24.7 % (9.0-44.0); LYMPHOCYTE # 1.4 TH/MM3 (1.0-4.8); MEAN CELL VOLUME 101.5 FL (80.0-100.0); MEAN CORPUSCULAR HEMOGLOBIN 33.8 PG (27.0-34.0); MEAN CORPUSCULAR HGB CONC 33.3 % (32.0-36.0); MEAN PLATELET VOLUME 8.1 FL (7.0-11.0); MONO % 9.8 % (0.0-8.0); MONOCYTE # 0.6 TH/MM3 (0-0.9); NEUT % 62.7 % (16.0-70.0); PLATELET COUNT 196 TH/MM3 (150-450); RED BLOOD COUNT 3.98 MIL/MM3 (4.50-5.90); RED CELL DISTRIBUTION WIDTH 14.4 % (11.6-17.2); WHITE BLOOD COUNT 5.8 TH/MM3 (4.0-11.0)
[2018-03-12 04:00] LABS: ALBUMIN 2.5 GM/DL (3.4-5.0); ALT (GPT) 13 U/L (12-78); AST (GOT) 13 U/L (15-37); BICARBONATE 25.1 MEQ/L (21.0-32.0); BLOOD UREA NITROGEN 9 MG/DL (7-18); CALCIUM 8.1 MG/DL (8.5-10.1); CHLORIDE 103 MEQ/L (98-107); CREATININE 0.73 MG/DL (0.60-1.30); GLUCOSE,RANDOM 85 MG/DL (74-106); SODIUM (NA) 139 MEQ/L (136-145)
[2018-03-12 04:01] LABS: ALKALINE PHOSPHATASE 49 U/L (45-117); TOTAL BILIRUBIN ADULT 0.5 MG/DL (0.2-1.0)
[2018-03-12] MEDS: CARVEDILOL 12.5 MG TAB PO SCH ×2 (05:49→17:04)
[2018-03-12] MEDS: NS + KCL 20 MEQ INJ 1,000 ML IV SCH ×2 (05:53→21:08)
[2018-03-12] MEDS: ISOSORBIDE MONONITRATE 30 MG CR TAB (IMDUR) PO SCH (06:34)
[2018-03-12] MEDS ORDERED: POTASSIUM CHLORIDE 20 MEQ CONTROLLED RELEASE TAB PO ONE (07:15)
--- NOTE | 2018-03-12 07:31 | EKG ---
Date Performed: 03/11/2018 Time Performed: 05:29:52 PTAGE: 53 years EKG: Sinus rhythm Left axis deviation RBBB with left anterior fascicular block Inferior infarct - age undetermined Abn ormal ECG PREVIOUS TRACING : 03/10/2018 15.55 DOCTOR: Breanna Frederick Interpretating Date/Time 03/12/2018 07:26:51
--- NOTE | 2018-03-12 07:34 | HHI.PR ---
Subjective Remarks Follow-up pancreatitis. States he is improving with pain. Able to tolerate meals but consuming food slowly in small amounts. No nausea or vomiting. Lipase over 3000 Objective Vitals Vital Signs Date Time Temp Pulse Resp B/P (MAP) Pulse Ox O2 Delivery O2 Flow Rate FiO2 03/12/18 07:12 18 03/12/18 06:12 74 03/12/18 05:00 72 03/12/18 04:00 70 03/12/18 03:15 97.8 76 18 116/66 (83) 98 03/12/18 03:00 77 03/12/18 02:00 82 03/12/18 01:00 94 03/12/18 00:00 78 03/11/18 23:40 97.6 79 20 132/83 (99) 97 03/11/18 23:00 78 03/11/18 22:00 86 03/11/18 21:00 86 03/11/18 20:13 99 03/11/18 20:00 84 03/11/18 19:15 98.1 98 18 115/72 (86) 98 03/11/18 19:00 75 03/11/18 18:00 75 03/11/18 17:05 117/78 (91) 03/11/18 17:00 79 03/11/18 16:00 78 03/11/18 15:00 98.5 83 16 123/83 (96) 99 03/11/18 15:00 82 03/11/18 14:00 84 03/11/18 13:00 81 03/11/18 12:00 74 03/11/18 11:00 79 03/11/18 11:00 97.6 75 17 126/73 (90) 96 03/11/18 10:00 76 03/11/18 09:00 76 03/11/18 08:00 70 03/11/18 07:44 98.7 76 16 112/67 (82) 99 I/O 03/11/18 03/11/18 03/11/18 03/12/18 03/12/18 03/12/18 06:59 14:59 22:59 06:59 14:59 22:59 Intake Total 240 ml 833 ml 1488 ml Output Total 200 ml 600 ml Balance 40 ml 833 ml 888 ml Intake Oral 240 ml 680 ml 720 ml IV Total 153 ml 768 ml Output Urine Total 200 ml 600 ml # Voids 2 1 Result Diagram: 03/12/18 0222 03/12/18 0222 Imaging Last Impressions Chest X-Ray 03/09/18 1359 Signed Impressions: CONCLUSION: No acute intrathoracic disease. Objective Remarks GENERAL: This is a well-nourished, well-developed patient, in no apparent distress. CARDIOVASCULAR: Regular rate and rhythm without murmurs, gallops, or rubs. RESPIRATORY: Clear to auscultation. Breath sounds equal bilaterally. No wheezes , rales, or rhonchi. GASTROINTESTINAL: Abdomen with improving tenderness over epigastric soft nondistended. No obvious pulsatile mass or bruit. No CVA tenderness. Strong femoral pulses bilaterally. Normal bowel sounds in all quadrants. MUSCULOSKELETAL: Patient is moving upper and lower extremities freely. No calf tenderness or edema, no Homans sign. Strong pulses in upper and lower extremities. NEUROLOGICAL: Patient is alert and oriented. Cranial nerves 2-12 are grossly intact. No focal deficits and speech is clear. SKIN: No rash and turgor is normal. Procedures Cardiac catheterization A/P Problem List: (1) Chest pain ICD Code: R07.9 - Chest pain, unspecified Status: Acute Assessment and Plan CP with history of CAD status post CABG and multiple stents. He is chest pain- free status post direct PCI of the ostial first obtuse marginal vessel from 95% to 0% with JESSICA [address] Causey. Status post reloading with Plavix 600 mg p.o. and 75 mg a day for 12-15 months, aspirin 162 mg daily. Continue Lipitor, Coreg and Ranexa. Risk factor modification LDL 26. He is hyperglycemic A1c 5.8 Heartburn with epigastric tenderness. Continue PPI and antacids. 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 Improving clinically but lipase is still significantly elevated recommend keeping patient another day with supportive management and IV hydration and repeat lipase in the morning Hypertension. Better BP control continue Coreg, Norvasc and losartan Hyperlipidemia: Continue statin. Tobacco abuse: Patient has been counseled on importance of smoking cessation. DVT prophylaxis with heparin Discharge Planning Not ready for discharge. May transfer to [facility] Nadeem Powell MD March 12, 2018 07:34
[2018-03-12] MEDS: ASPIRIN 81 MG CHEW TAB PO SCH (08:08)
[2018-03-12] MEDS: LOSARTAN 50 MG TAB PO SCH (08:08)
[2018-03-12] MEDS: CLOPIDOGREL 75 MG TAB PO SCH (08:08)
[2018-03-12] MEDS: PANTOPRAZOLE SOD 40 MG DELAYED RELEASE TAB PO SCH (08:08)
[2018-03-12] MEDS: RANOLAZINE 500 MG EXTENDED RELEASE TAB PO SCH ×2 (08:08→21:05)
[2018-03-12] MEDS: SODIUM CHLORIDE 0.9% FLUSH 10 ML FLUSH IV FLUSH SCH ×2 (08:09→21:00)
--- NOTE | 2018-03-12 08:25 | EKG ---
Date Performed: 03/10/2018 Time Performed: 15:55:52 PTAGE: 53 years EKG: Sinus tachycardia. Left axis deviation RBBB with left anterior fascicular block Inferior in farct - age undetermined Abnormal ECG NO PREVIOUS TRACING DOCTOR: Breanna Frederick Interpretating Date/Time 03/12/2018 08:17:28
[2018-03-12] MEDS: ALPRAZolam 0.25 MG TAB PO PRN ×2 (09:53→22:49)
[2018-03-12] MEDS ORDERED: MAGNESIUM HYDROXIDE SUSP 30 ML CUP PO ONE (10:30)
[2018-03-12] MEDS: DOCUSATE SODIUM 100 MG CAP PO SCH ×2 (11:00→21:06)
--- NOTE | 2018-03-12 14:07 | PD.CARD.PN ---
Subjective Subjective Remarks chest pain resolved Objective Medications Current Medications Medications (Trade) Dose Ordered Sig/Brennan Route Start Time Stop Time Status Last Admin (Tylenol) 500 mg Q4H PRN PO 03/09/18 16:45 ([place] 7.5-325 Mg) 1 tab Q4H PRN PO 03/09/18 16:45 03/12/18 09:54 (Xanax) 0.25 mg Q8H PRN PO 03/09/18 16:45 03/12/18 09:53 (Zofran Odt) 4 mg Q6H PRN PO 03/09/18 21:00 (Duoneb Neb) 1 ampule Q4HR NEB PRN INH 03/09/18 16:45 (Catapres) 0.1 mg Q4H PRN PO 03/09/18 16:45 (Norvasc) 10 mg DAILY PO 03/10/18 09:00 03/12/18 08:08 (Lipitor) 40 mg HS PO 03/09/18 21:00 03/11/18 20:13 (Plavix) 75 mg DAILY PO 03/10/18 09:00 03/12/18 08:08 (Imdur) 30 mg DAILY@0700 PO 03/10/18 07:00 03/12/18 06:34 (Cozaar) 50 mg DAILY PO 03/10/18 09:00 03/12/18 08:08 (Protonix) 40 mg DAILY PO 03/10/18 09:00 03/12/18 08:08 (Ranexa) 500 mg BID PO 03/09/18 21:00 03/12/18 08:08 (Compazine Inj) 5 mg Q6H PRN IV PUSH 03/09/18 21:15 03/09/18 21:34 Lactated Ringer's 1,000 ml @ 30 mls/hr Q24H PRN IV 03/10/18 06:30 03/13/18 06:29 Sodium Chloride 500 ml @ 30 mls/hr [id number] PRN IV 03/10/18 06:30 03/13/18 06:29 (Lopressor) 25 mg NETWORK SYSTEM[employer] INTEGRATOR PRN PO 03/10/18 06:30 03/13/18 06:29 (Betadine 5% Antisepsis Kit) 1 applic NETWORK SYSTEM[employer] INTEGRATOR PRN EACH NARE 03/10/18 06:30 03/13/18 06:29 (Chlorhexidine 2% Cloth) 3 pack NET[employer] INTEGRATOR PRN TOPICAL 03/10/18 06:30 03/13/18 06:29 (Coreg) 25 mg Q12H PO 03/10/18 18:00 03/12/18 05:49 (NS Flush) 2 ml UNSCH PRN IV FLUSH 03/10/18 11:45 (NS Flush) 2 ml BID IV FLUSH 03/10/18 21:00 03/12/18 08:09 (Aspirin Chew) 162 mg DAILY PO 03/11/18 09:00 03/12/18 08:08 (Mag-Al Plus Susp Liq) 30 ml Q6H PRN PO 03/10/18 15:30 03/10/18 17:15 (Tums Chew) 500 mg Q6H PRN CHEW 03/10/18 15:30 03/10/18 15:50 Potassium Chloride/Sodium Chloride 1,000 ml @ 60 mls/hr [id number] IV 03/11/18 14:15 03/12/18 05:53 (Colace) 100 mg BID PO 03/12/18 11:00 03/12/18 11:00 Vital Signs / I&O Vital Signs Date Time Temp Pulse Resp B/P (MAP) Pulse Ox O2 Delivery O2 Flow Rate FiO2 03/12/18 10:04 67 03/12/18 09:00 69 03/12/18 08:00 68 03/12/18 08:00 98.4 67 18 104/66 (79) 97 03/12/18 07:50 97 21 03/12/18 07:12 18 03/12/18 06:12 74 03/12/18 05:00 72 03/12/18 04:00 70 03/12/18 03:15 97.8 76 18 116/66 (83) 98 03/12/18 03:00 77 03/12/18 02:00 82 03/12/18 01:00 94 03/12/18 00:00 78 03/11/18 23:40 97.6 79 20 132/83 (99) 97 03/11/18 23:00 78 03/11/18 22:00 86 03/11/18 21:00 86 03/11/18 20:13 99 03/11/18 20:00 84 03/11/18 19:15 98.1 98 18 115/72 (86) 98 03/11/18 19:00 75 03/11/18 18:00 75 03/11/18 17:05 117/78 (91) 03/11/18 17:00 79 03/11/18 16:00 78 03/11/18 15:00 98.5 83 16 123/83 (96) 99 03/11/18 15:00 82 I/O 03/11/18 03/11/18 03/11/18 03/12/18 03/12/18 03/12/18 07:00 15:00 23:00 07:00 15:00 23:00 Intake Total 240 ml 833 ml 1488 ml Output Total 200 ml 600 ml Balance 40 ml 833 ml 888 ml Intake Oral 240 ml 680 ml 720 ml IV Total 153 ml 768 ml Output Urine Total 200 ml 600 ml # Voids 2 1 Physical Exam GENERAL: SKIN: Warm and dry. HEAD: Normocephalic. EYES: No scleral icterus. No injection or drainage. NECK: Supple, trachea midline. No JVD or lymphadenopathy. CARDIOVASCULAR: Regular rate and rhythm without murmurs, gallops, or rubs. RESPIRATORY: Breath sounds equal bilaterally. No accessory muscle use. GASTROINTESTINAL: Abdomen soft, non-tender, nondistended. MUSCULOSKELETAL: No cyanosis, or edema. BACK: Nontender without obvious deformity. No CVA tenderness. Laboratory Laboratory Tests Test 03/12/18 02:22 White Blood Count 5.8 TH/MM3 Red Blood Count 3.98 MIL/MM3 Hemoglobin 13.5 GM/DL Hematocrit 40.4 % Mean Corpuscular Volume 101.5 FL Mean Corpuscular Hemoglobin 33.8 PG Mean Corpuscular Hemoglobin Concent 33.3 % Red Cell Distribution Width 14.4 % Platelet Count 196 TH/MM3 Mean Platelet Volume 8.1 FL Neutrophils (%) (Auto) 62.7 % Lymphocytes (%) (Auto) 24.7 % Monocytes (%) (Auto) 9.8 % Eosinophils (%) (Auto) 2.4 % Basophils (%) (Auto) 0.4 % Neutrophils # (Auto) 3.6 TH/MM3 Lymphocytes # (Auto) 1.4 TH/MM3 Monocytes # (Auto) 0.6 TH/MM3 Eosinophils # (Auto) 0.1 TH/MM3 Basophils # (Auto) 0.0 TH/MM3 CBC Comment DIFF FINAL Differential Comment Blood Urea Nitrogen 9 MG/DL Creatinine 0.73 MG/DL Random Glucose 85 MG/DL Total Protein 6.0 GM/DL Albumin 2.5 GM/DL Calcium Level 8.1 MG/DL Magnesium Level 2.0 MG/DL Alkaline Phosphatase 49 U/L Aspartate Amino Transf (AST/SGOT) 13 U/L Alanine Aminotransferase (ALT/SGPT) 13 U/L Total Bilirubin 0.5 MG/DL Sodium Level 139 MEQ/L Potassium Level 3.6 MEQ/L Chloride Level 103 MEQ/L Carbon Dioxide Level 25.1 MEQ/L Anion Gap 11 MEQ/L Lipase 3394 U/L Assessment and Plan Problem List: (1) Unstable angina ICD Codes: I20.0 - Unstable angina (2) CAD (coronary artery disease) ICD Codes: I25.10 - Atherosclerotic heart disease of [place] coronary artery without angina pectoris Assessment and Plan 1.) CAD - angina resolved s/p bms ost om1, continue aspirin, plavix, coreg, lipitor, llosartan, patient strongly advised to stop smoking, i advised patient to f/u with me in office next week Isiah Causey MD March 12, 2018 14:07
[2018-03-12] MEDS: ATORVASTATIN 40 MG TAB PO SCH (21:06)
[2018-03-13] VITALS (14 sets, daily range): BP systolic 109–130; BP diastolic 69–77; PULSE 60–76; RESP 16–18; TEMP 97.6–97.9; O2SAT 97–100
[2018-03-13] MEDS: CARVEDILOL 12.5 MG TAB PO SCH (05:46)
[2018-03-13] MEDS: ISOSORBIDE MONONITRATE 30 MG CR TAB (IMDUR) PO SCH (05:46)
[2018-03-13 05:56] LABS: AUTOMATED NEUTROPHIL # 2.2 TH/MM3 (1.8-7.7); BASOPHIL % 0.5 % (0.0-2.0); EOSINOPHIL # 0.1 TH/MM3 (0-0.4); EOSINOPHIL % 2.8 % (0.0-4.0); HEMATOCRIT 39.4 % (39.0-51.0); HEMOGLOBIN 13.3 GM/DL (13.0-17.0); LYMPH % 36.1 % (9.0-44.0); LYMPHOCYTE # 1.6 TH/MM3 (1.0-4.8); MEAN CELL VOLUME 101.4 FL (80.0-100.0); MEAN CORPUSCULAR HEMOGLOBIN 34.4 PG (27.0-34.0); MEAN CORPUSCULAR HGB CONC 33.9 % (32.0-36.0); MEAN PLATELET VOLUME 7.8 FL (7.0-11.0); MONO % 12.6 % (0.0-8.0); MONOCYTE # 0.6 TH/MM3 (0-0.9); PLATELET COUNT 204 TH/MM3 (150-450); RED BLOOD COUNT 3.88 MIL/MM3 (4.50-5.90); RED CELL DISTRIBUTION WIDTH 14.3 % (11.6-17.2); WHITE BLOOD COUNT 4.5 TH/MM3 (4.0-11.0)
[2018-03-13 06:17] LABS: ALBUMIN 2.5 GM/DL (3.4-5.0); ALT (GPT) 15 U/L (12-78); AST (GOT) 15 U/L (15-37); BICARBONATE 25.3 MEQ/L (21.0-32.0); BLOOD UREA NITROGEN 8 MG/DL (7-18); CALCIUM 8.3 MG/DL (8.5-10.1); CHLORIDE 107 MEQ/L (98-107); CREATININE 0.77 MG/DL (0.60-1.30); GLOMERULAR FILTRATION RATE 106 ML/MIN (>89); GLUCOSE,RANDOM 84 MG/DL (74-106); MAGNESIUM 2.2 MG/DL (1.5-2.5); SODIUM (NA) 141 MEQ/L (136-145)
[2018-03-13 06:19] LABS: ALKALINE PHOSPHATASE 49 U/L (45-117); TOTAL BILIRUBIN ADULT 0.4 MG/DL (0.2-1.0); TOTAL PROTEIN 5.9 GM/DL (6.4-8.2)
[2018-03-13] MEDS: DOCUSATE SODIUM 100 MG CAP PO SCH (09:05)
[2018-03-13] MEDS: ASPIRIN 81 MG CHEW TAB PO SCH (09:06)
[2018-03-13] MEDS: SODIUM CHLORIDE 0.9% FLUSH 10 ML FLUSH IV FLUSH SCH (09:06)
[2018-03-13] MEDS: ACETAMINOPHEN/HYDROcodone 325 MG/7.5 MG TAB PO PRN (09:06)
[2018-03-13] MEDS: PANTOPRAZOLE SOD 40 MG DELAYED RELEASE TAB PO SCH (09:08)
[2018-03-13] MEDS: LOSARTAN 50 MG TAB PO SCH (09:26)
[2018-03-13] MEDS: RANOLAZINE 500 MG EXTENDED RELEASE TAB PO SCH (09:26)
[2018-03-13] MEDS: CLOPIDOGREL 75 MG TAB PO SCH (09:26)
--- NOTE | 2018-03-13 11:01 | HHI.DS ---
Discharge Summary Admission Date March 09, 2018 at 15:40 Discharge Date: March 13, 2018 Admitting Diagnosis Chest pain (1) Chest pain ICD Code: R07.9 - Chest pain, unspecified Status: Acute Procedures Cardiac catheterization Brief History - From Admission This is a 53-year-old male with history of CAD with a three-vessel bypass May 2017 in [place] as well as having 5 stents since then presents to ED with a complaint of chest discomfort that began this morning. Patient states that he twisted quickly to be on his grandson and when doing so he felt as if something in his chest not. He points to the sternum indicate the location of this. It was a sharp pain. It lasted an hour. States that just recently came back. States is tender to touch. He was not short of breath, nauseous, or diaphoretic. He states it is not the same type of discomfort that he would have when needing stents or the bypass. States that he was having a pressure discomfort with those episodes. States he was recently admitted to [facility] last week and was discharged. States he had CAT scan but states he had no stress test or heart catheterization. States his last stent was 2 months ago. Does not know which vessel. States that his last stress test was 3 months ago in [place] and at which time he needed a stent. States he is in town visiting family and does not know when he will be back in [place]. He has no local doctor. States he takes the medications as directed but does not know any of them. Patient continues to smoke cigarettes. CBC/BMP: 03/13/18 0501 03/13/18 0501 Significant Findings Laboratory Tests Test 03/11/18 04:59 03/12/18 02:22 03/13/18 05:01 Red Blood Count 4.32 MIL/MM3 (4.50-5.90) 3.98 MIL/MM3 (4.50-5.90) 3.88 MIL/MM3 (4.50-5.90) Mean Corpuscular Volume 101.8 FL (80.0-100.0) 101.5 FL (80.0-100.0) 101.4 FL (80.0-100.0) Neutrophils (%) (Auto) 74.6 % (16.0-70.0) Monocytes (%) (Auto) 9.4 % (0.0-8.0) 9.8 % (0.0-8.0) 12.6 % (0.0-8.0) Random Glucose 142 MG/DL (74-106) Total Protein 6.2 GM/DL (6.4-8.2) 6.0 GM/DL (6.4-8.2) 5.9 GM/DL (6.4-8.2) Albumin 2.7 GM/DL (3.4-5.0) 2.5 GM/DL (3.4-5.0) 2.5 GM/DL (3.4-5.0) Calcium Level 8.3 MG/DL (8.5-10.1) 8.1 MG/DL (8.5-10.1) 8.3 MG/DL (8.5-10.1) Total Creatine Kinase 37 U/L (39-308) Cholesterol Level 77 MG/DL (120-200) HDL Cholesterol 39.0 MG/DL (40.0-60.0) Lipase 5998 U/L (73-393) 3394 U/L (73-393) 661 U/L (73-393) Aspartate Amino Transf (AST/SGOT) 13 U/L (15-37) Mean Corpuscular Hemoglobin 34.4 PG (27.0-34.0) Imaging Last Impressions Chest X-Ray 03/09/18 1359 Signed Impressions: CONCLUSION: No acute intrathoracic disease. PE at Discharge GENERAL: This is a well-nourished, well-developed patient, in no apparent distress. CARDIOVASCULAR: Regular rate and rhythm without murmurs, gallops, or rubs. RESPIRATORY: Clear to auscultation. Breath sounds equal bilaterally. No wheezes , rales, or rhonchi. GASTROINTESTINAL: Abdomen with improving tenderness over epigastric soft nondistended. No obvious pulsatile mass or bruit. No CVA tenderness. Strong femoral pulses bilaterally. Normal bowel sounds in all quadrants. MUSCULOSKELETAL: Patient is moving upper and lower extremities freely. No calf tenderness or edema, no Homans sign. Strong pulses in upper and lower extremities. NEUROLOGICAL: Patient is alert and oriented. Cranial nerves 2-12 are grossly intact. No focal deficits and speech is clear. SKIN: No rash and turgor is normal. Hospital Course CP with history of CAD status post CABG and multiple stents. He is chest pain- free status post direct PCI of the ostial first obtuse marginal vessel from 95% to 0% with JESSICA [address] Causey. Status post reloading with Plavix 600 mg p.o. and 75 mg a day for 12-15 months, aspirin 162 mg daily. Continue Lipitor, Coreg and Ranexa. Risk factor modification LDL 26. He is hyperglycemic A1c 5.8 Heartburn with epigastric tenderness. Continue PPI and antacids. 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 Improving clinically lipase almost WNL Hypertension. Better BP control continue Coreg, Norvasc and losartan Hyperlipidemia: Continue statin. Tobacco abuse: Patient has been counseled on importance of smoking cessation. DVT prophylaxis with heparin Pt Condition on Discharge: Stable Discharge Disposition: Discharge Home Discharge Time: > 30 minutes Discharge Instructions DIET: Follow Instructions for: Heart Healthy Diet Activities you can perform: Regular-No Restrictions Activities to Avoid: Driving Follow up Referrals: Cardiology - 1 Week PCP Follow-up - 1 Week New Medications: Rvnvjhgf-Nshvtxcws-Juspgtvwfcg Liq (Mag-Al Plus Liq) 200-200-20 Mg/5 Ml Susp 30 ML PO Q6H PRN for DYSPEPSIA OR HEARTBURN, #180 ML Take between meals or as directed. Shake well. Do not exceed 120 mL/24 hrs. Aspirin (Tgt Aspirin) 81 Mg Chw 162 MG PO DAILY for Prevent Blood Clot, #60 EA Carvedilol (Coreg) 12.5 Mg Tab 25 MG PO Q12H for Regulate Heart Beat, #60 TAB Hydrocodone/Acetaminophen (Hydrocodone-Acetamin 7.5-325) 7.5 Mg-325 Mg Tablet 1 TAB PO Q6H PRN for PAIN SCALE 1 TO 10, #12 TAB [Calcium Carbonate Chew] () 500 MG CHEW 500 MG CHEW Q6H PRN for DYSPEPSIA OR HEARTBURN, #60 TAB Continued Medications: Amlodipine (Amlodipine) 10 Mg Tab 10 MG PO DAILY for Blood Pressure Management, #30 TAB 0 Refills Atorvastatin (Atorvastatin) 40 Mg Tab 40 MG PO HS for Cholesterol Management, #30 TAB 0 Refills Clopidogrel (Plavix) 75 Mg Tab 75 MG PO DAILY for Blood Clot Prevention, #30 TAB 0 Refills Isosorbide Mononitrate ER (Isosorbide Mononitrate ER) 30 Mg Juanito 30 MG PO DAILY for Prevent Chest Pain, #30 TAB 0 Refills Losartan (Losartan) 50 Mg Tab 50 MG PO DAILY for Blood Pressure Management, #30 TAB 0 Refills Nitroglycerin SL (Nitrostat SL) 0.4 Mg Subl 0.4 MG SL DIRECTED PRN for CHEST PAIN, #100 TAB.SL 0 Refills 1 tablet under the tongue as needed for chest pain. Repeat every 5 minutes for a total of 3 DOSES or call 911 if NO relief. Pantoprazole (Protonix) 40 Mg Tab 40 MG PO DAILY for Reflux, #30 TAB 0 Refills Ranolazine ER 12 HR (Ranexa ER 12 HR) 500 Mg Tab 500 MG PO BID for Chest Pain, #60 TAB 0 Refills Nadeem Powell MD March 13, 2018 11:01
--- NOTE | 2018-03-13 11:18 | PD.CARD.PN ---
Subjective Subjective Remarks chest pain resolved Objective Medications Current Medications Medications (Trade) Dose Ordered Sig/Brennan Route Start Time Stop Time Status Last Admin (Tylenol) 500 mg Q4H PRN PO 03/09/18 16:45 ([place] 7.5-325 Mg) 1 tab Q4H PRN PO 03/09/18 16:45 03/13/18 09:06 (Xanax) 0.25 mg Q8H PRN PO 03/09/18 16:45 03/12/18 22:49 (Zofran Odt) 4 mg Q6H PRN PO 03/09/18 21:00 (Duoneb Neb) 1 ampule Q4HR NEB PRN INH 03/09/18 16:45 (Catapres) 0.1 mg Q4H PRN PO 03/09/18 16:45 (Norvasc) 10 mg DAILY PO 03/10/18 09:00 03/13/18 09:07 (Lipitor) 40 mg HS PO 03/09/18 21:00 03/12/18 21:06 (Plavix) 75 mg DAILY PO 03/10/18 09:00 03/13/18 09:26 (Imdur) 30 mg DAILY@0700 PO 03/10/18 07:00 03/13/18 05:46 (Cozaar) 50 mg DAILY PO 03/10/18 09:00 03/13/18 09:26 (Protonix) 40 mg DAILY PO 03/10/18 09:00 03/13/18 09:08 (Ranexa) 500 mg BID PO 03/09/18 21:00 03/13/18 09:26 (Compazine Inj) 5 mg Q6H PRN IV PUSH 03/09/18 21:15 03/09/18 21:34 (Coreg) 25 mg Q12H PO 03/10/18 18:00 03/13/18 05:46 (NS Flush) 2 ml UNSCH PRN IV FLUSH 03/10/18 11:45 (NS Flush) 2 ml BID IV FLUSH 03/10/18 21:00 03/13/18 09:06 (Aspirin Chew) 162 mg DAILY PO 03/11/18 09:00 03/13/18 09:06 (Mag-Al Plus Susp Liq) 30 ml Q6H PRN PO 03/10/18 15:30 03/10/18 17:15 (Tums Chew) 500 mg Q6H PRN CHEW 03/10/18 15:30 03/10/18 15:50 Potassium Chloride/Sodium Chloride 1,000 ml @ 60 mls/hr [id number] IV 03/11/18 14:15 03/12/18 21:08 (Colace) 100 mg BID PO 03/12/18 11:00 03/13/18 09:05 Vital Signs / I&O Vital Signs Date Time Temp Pulse Resp B/P (MAP) Pulse Ox O2 Delivery O2 Flow Rate FiO2 03/13/18 06:00 74 03/13/18 05:06 71 16 109/69 (82) 100 03/13/18 05:00 66 03/13/18 04:00 68 03/13/18 03:00 68 03/13/18 02:00 64 03/13/18 01:00 72 03/13/18 00:00 76 03/12/18 23:00 70 16 116/71 (86) 99 03/12/18 23:00 68 03/12/18 22:00 64 03/12/18 21:02 21 03/12/18 21:00 64 03/12/18 20:00 70 03/12/18 19:00 75 03/12/18 19:00 98.8 80 16 112/70 (84) 99 03/12/18 18:00 82 03/12/18 17:47 98.4 67 18 119/65 (83) 97 03/12/18 17:00 62 03/12/18 16:00 82 03/12/18 15:00 63 03/12/18 14:00 82 03/12/18 14:00 98.4 68 18 120/69 (86) 97 03/12/18 13:00 78 03/12/18 12:00 69 I/O 03/12/18 03/12/18 03/12/18 03/13/18 03/13/18 03/13/18 07:00 15:00 23:00 07:00 15:00 23:00 Intake Total 1488 ml 600 ml 240 ml Output Total 600 ml 500 ml 550 ml Balance 888 ml 100 ml -310 ml Intake Oral 720 ml 600 ml 240 ml IV Total 768 ml Output Urine Total 600 ml 500 ml 550 ml # Voids 1 # Bowel Movements 0 1 Physical Exam GENERAL: SKIN: Warm and dry. HEAD: Normocephalic. EYES: No scleral icterus. No injection or drainage. NECK: Supple, trachea midline. No JVD or lymphadenopathy. CARDIOVASCULAR: Regular rate and rhythm without murmurs, gallops, or rubs. RESPIRATORY: Breath sounds equal bilaterally. No accessory muscle use. GASTROINTESTINAL: Abdomen soft, non-tender, nondistended. MUSCULOSKELETAL: No cyanosis, or edema. BACK: Nontender without obvious deformity. No CVA tenderness. Laboratory Laboratory Tests Test 03/13/18 05:01 White Blood Count 4.5 TH/MM3 Red Blood Count 3.88 MIL/MM3 Hemoglobin 13.3 GM/DL Hematocrit 39.4 % Mean Corpuscular Volume 101.4 FL Mean Corpuscular Hemoglobin 34.4 PG Mean Corpuscular Hemoglobin Concent 33.9 % Red Cell Distribution Width 14.3 % Platelet Count 204 TH/MM3 Mean Platelet Volume 7.8 FL Neutrophils (%) (Auto) 48.0 % Lymphocytes (%) (Auto) 36.1 % Monocytes (%) (Auto) 12.6 % Eosinophils (%) (Auto) 2.8 % Basophils (%) (Auto) 0.5 % Neutrophils # (Auto) 2.2 TH/MM3 Lymphocytes # (Auto) 1.6 TH/MM3 Monocytes # (Auto) 0.6 TH/MM3 Eosinophils # (Auto) 0.1 TH/MM3 Basophils # (Auto) 0.0 TH/MM3 CBC Comment DIFF FINAL Differential Comment Blood Urea Nitrogen 8 MG/DL Creatinine 0.77 MG/DL Random Glucose 84 MG/DL Total Protein 5.9 GM/DL Albumin 2.5 GM/DL Calcium Level 8.3 MG/DL Magnesium Level 2.2 MG/DL Alkaline Phosphatase 49 U/L Aspartate Amino Transf (AST/SGOT) 15 U/L Alanine Aminotransferase (ALT/SGPT) 15 U/L Total Bilirubin 0.4 MG/DL Sodium Level 141 MEQ/L Potassium Level 3.9 MEQ/L Chloride Level 107 MEQ/L Carbon Dioxide Level 25.3 MEQ/L Anion Gap 9 MEQ/L Estimat Glomerular Filtration Rate 106 ML/MIN Lipase 661 U/L Assessment and Plan Problem List: (1) Unstable angina ICD Codes: I20.0 - Unstable angina (2) CAD (coronary artery disease) ICD Codes: I25.10 - Atherosclerotic heart disease of [place] coronary artery without angina pectoris Assessment and Plan 1.) CAD - angina resolved s/p bms ost om1, continue aspirin, plavix, coreg, lipitor, losartan, patient strongly advised to stop smoking, i advised patient to f/u with me in office next week Isiah Causey MD March 13, 2018 11:18
== END 2018-03-13 13:14 | disposition home or self-care (01) ==
LOC: NEPE 13:49 → NEDA 15:40 → NEPHCDU 18:06 → HCIS 03-10 11:34 → OBSVTOIN 03-10 11:42 → INTOOBSV 03-10 11:42 → HCIS 03-10 11:59
PROVIDERS: ADMIT Internal Medicine; ATTEND Internal Medicine
DX: I25.110 Atherosclerotic heart disease of native coronary artery with unstable angina pectoris (principal); I10 Essential (primary) hypertension; R11.0 Nausea; R06.00 Dyspnea, unspecified; F17.210 Nicotine dependence, cigarettes, uncomplicated; I45.2 Bifascicular block; R61 Generalized hyperhidrosis; E78.5 Hyperlipidemia, unspecified; R73.9 Hyperglycemia, unspecified; K85.90 Acute pancreatitis without necrosis or infection, unspecified; Z82.49 Family history of ischemic heart disease and other diseases of the circulatory system; Z95.1 Presence of aortocoronary bypass graft; Z79.82 Long term (current) use of aspirin; Z71.6 Tobacco abuse counseling
CPT/HCPCS: 71046; 80048; 80053; 80061; 80076; 82550; 83036; 83690; 83735; 83880; 84484; 85002; 85025; 85027; 85347; 85610; 85730; 92928; 93005; 93459; 96365; 96366; 96375; 96376; 99152; 99153; 99285; C1769; C1876; C1887; C1893; G0378; J0780; J1644; J1885; J2250; J2270; J3010; J3480; Q9967